=== PATIENT | female | born 1955 | race Caucasian/White ===

== ENCOUNTER → 2024-12-04 | Outpatient (CLI) | payer MEDICARE, BC, SELFPAY ==
--- NOTE | 2024-12-04 11:45 | XR_ITS ---
Examination: Screening digital mammography, bilateral Computer aided detection 3-D breast Tomosynthesis, bilateral Date and time of exam: December 04, 2024 1129 hours Compared to mammograms dating to December 18, 2018 Indication: Screening Technique: Nonmagnified MLO, CC views of the breasts to been obtained, reconstructed from 3-D Tomosynthesis images. R2 computer aided detection program utilized for evaluation of suspicious masses and/or abnormal calcifications. 3-D Tomosynthesis images obtained. Findings: Scattered areas of fibroglandular density Stable nodule outer right breast posterior depth, likely intramammary lymph node Stable focal asymmetry upper left breast MLO view No interval suspicious masses Impression: BI-RADS category II: Benign Findings. Recommend 1 year follow-up mammogram.
== END | disposition home or self-care (01) ==
LOC: CDIM 11:18
PROVIDERS: Referring Provider Nurse Practitioner Family; Visit Provider Nurse Practitioner Family
DX: Z12.31 Encounter for screening mammogram for malignant neoplasm of breast (principal); R92.323 Mammographic fibroglandular density, bilateral breasts
CPT/HCPCS: 77063; 77067

== ENCOUNTER 2024-12-18 10:12 | Outpatient (RCR) | payer MEDICARE, SELFPAY ==
--- NOTE | 2024-12-19 08:44 | PT.OIERPT ---
PT OP Initial Eval Patient Information Outpatient Physical Therapy Treatment Date: 12/18/24 Visit Reasons: Pain in RT shoulder Medical Diagnosis: M25.511 Treatment Dx #1: Right Shoulder Pain Start of Care: 12/19/24 Date of Onset: 6 months ago Smoking Status Smoking Status: Never smoker Initial Assessment Subjective: Pt is a 69 y/o female reports of right shoulder pain (510) ~ 6 months ago while cutting her tree branch with a jeannette. Pt's xray showed moderate OA and is pending MRI in Dec. Pt has limitation overhead motions, lifting, chores, self care, yardwork, and performing recreational activities. Objective: Right Shoulder AROM: all motions are WFL with end range pain in all plane Right Shoulder MMTs: grossly 3+/5 Right Scapula MMTs: grossly 3/5 Special Test (+) [id number]-yuan Palpation: TTP supraspinatus tendon Assessment: Pt demonstrate right shoulder pain leading to difficulty with ADLs. Pt will attempt physical therapy if pain persist Pt will be refer back to provider for further consultation Short Term and Half-Way Goals 1) Increase right shoulder AROM WNL in 6 wks to be able to perform overhead motions 2) Increase right shoulder MMTs grossly to 4-/5 in 6 wks to be able to perform lifting activities 3) Increase right scapula MMTs grossly to 3+/5 in 6 wks to be able to perform recreational activities 4) Indep with HEP Treatment Plan 1) Manual Therapy 2) Therapeutic Activities 3) Therapeutic Exercises 4) Modalities (ice, heat) Frequency and Duration: 2 x wk for 6 wks Certification Dates: 12/18/24 to 03/18/25 Procedure Charges OP PT Eval Mod Complex 30 minutes: Yes
== END 2024-12-28 23:59 | disposition home or self-care (01) ==
LOC: CPTX 10:12
PROVIDERS: PCP Nurse Practitioner Family; Referring Provider Nurse Practitioner Family; Visit Provider Nurse Practitioner Family
DX: M25.511 Pain in right shoulder (principal); M19.011 Primary osteoarthritis, right shoulder
CPT/HCPCS: 97162

== ENCOUNTER 2025-08-06 19:14 | Emergency (ER) | payer MEDICARE, BC, SELFPAY ==
--- NOTE | 2025-08-06 19:25 | XR_ITS ---
Examination: Wrist, left 3 views Technique: Wrist AP, oblique, lateral 3 views Date and time of exam: August 06, 2025, 1942 hrs. Indications: Patient fell today with injury to the wrist, wrist pain. Findings: Absent navicular Sclerotic area in the distal radius Severe osteopenia Advanced osteoarthritis first carpometacarpal joint No acute torus fracture Impression: No acute wrist fracture
--- NOTE | 2025-08-06 19:25 | XR_ITS ---
Examination: Right elbow 3 views Technique: Elbow AP, oblique, lateral 3 views Exam date and time: August 06, 2025, 1942 hrs. Indications: Patient fell today with injury to the elbow, elbow pain. Findings: Acute comminuted fractures radial head with 1.5 mm depression of a portion of the radial head Large elbow effusion Impression: Acute comminuted fractures radial head.
[2025-08-06 20:08] VITALS: BP 172/95; PULSE 76; RESP 16; TEMP 37; O2SAT 97; BMI 24.6
[2025-08-06] MEDS: HYDROcodone/APAP 5/325 TABLET 1 TAB PO (20:41)
--- NOTE | 2025-08-07 01:27 | EDNOTE_ITS ---
Upper Extremity Injury RME/HPI General Chief Complaint: Fall Stated Complaint: FELL, LEFT ARM INJURY Time Seen by Provider: 08/06/25 20:20 Arrival date/time: 08/06/25 19:14 70F with history of HTN presents to ED with L elbow and wrist pain after trip and fall today. Patient denies other injuries. Patient has had fxs and surgeries on L wrist prior to this happening. Limitations: no limitations Related Data Home Medications ?Medication ?Instructions ?Recorded ?Confirmed lisinopril 10 mg tablet 10 mg PO QDAY 01/10/2301/10 Allergies Allergy/AdvReac Type Severity Reaction Status Date / Time No Known Allergies Allergy Verified 08/06/25 19:15 Review of Systems Review of Systems Systems Reviewed: All systems reviewed, normal except as documented Musculoskeletal Musculoskeletal: Reports as per HPI and Reports arthralgias Past Medical History Past Medical History NEUROLOGIC: Negative Neurological Disorders or Seizures CARDIAC: Positive Cardiac Disorders and Hypertension; Negative Congestive Heart Failure RESPIRATORY: Negative Chronic Obstructive Pulmonary Disease (COPD) GASTROINTESTINAL: Positive Gastrointestinal Disorders (Positive stool occult) GENITOURINARY: Negative Genitourinary Disorders or Renal Disease MUSCULOSKELETAL: Positive Musculoskeletal Disorders and Arthritis ENDOCRINE: Negative Endocrine Disorders, Diabetes Mellitus Type 1 or Diabetes Mellitus Type 2 HEMATOLOGIC: Negative Blood Disorders, Anemia or Clotting Problems PSYCHO/SOCIAL: Positive Anxiety OTHER HISTORY: Negative Hospitalization, Autoimmune Disease, Falls, Blood Transfusions, Anesthesia Reactions, MRSA or Cancer Social History SMOKING STATUS: Never smoker ED Exam General Limitations: Present no limitations General appearance: Present alert and in no apparent distress Head Head exam: Present atraumatic Neck Neck exam: Present normal inspection, full ROM and trachea midline Chest Chest inspection: Present normal inspection and symmetric chest wall rise Expanded Upper Extremity Exam Elbow exam: Present tenderness (L) and swelling Psychiatric Psychiatric exam: Present normal affect and normal mood Course Quality Measures none Orders Category Date Time Status Splint / Immobilizer STAT Care 08/06/25 20:33 Completed XR elbow comp LT min 3V Stat Exams 08/06/25 19:25 Completed XR wrist comp LT min 3V Stat Exams 08/06/25 19:25 Completed HYDROcodone*/APAP 5/325 [Pelion 5/325] Med 08/06/25 20:33 Discontinued 1 tab PO X1 ONE Vital Signs Vital signs: Vital Signs Temperature 98.6 F 08/06/25 20:08 Pulse Rate 76 08/06/25 20:08 Respiratory Rate 16 08/06/25 20:08 Blood Pressure 172/95 H 08/06/25 20:08 Pulse Oximetry (%) 97 08/06/25 20:08 Oxygen Delivery Method Room Air 08/06/25 20:08 O2 at 97% on RA and WNLs Extremity Injury MDM Narrative MDM Narrative:: 70F with history of HTN presents to ED with L elbow and wrist pain after trip and fall today. Patient denies other injuries. Patient has had fxs and surgeries on L wrist prior to this happening. Physical exam reveals L elbow tenderness and reduced ROM. Fingers ROM intact. Patient is afebrile, calm, and alert. XR reveals L radial head fx. Given meds, splint, and counseling services manager. Patient data External records reviewed:: [facility] previous records Clinical information provided by:: patient Social determinants that could affect healthcare access:: none Patient has the following chronic illnesses:: HTN How is presenting disease/condition affected by chronic disease/condition?: uneffected by Evaluation data The following diagnostics were reviewed and interpreted by me:: radiology exam(s) Lab and/or radiology exams considered but not ordered:: ordered Interpretation Summary: above Medications / Prescriptions Medications or Prescriptions considered but not ordered:: ordered Medication administrations:: Medication Administration History Discontinued Medications Hydrocodone Bitart/Acetaminophen (Hydrocodone/Apap 5/325 Tablet) 1 tab PO X1 ONE Stop: 08/06/25 20:34 Last Admin: 08/06/25 20:41 Dose: 1 tab Documented By: OA above Consultations Consultation(s) initiated? (list below): No Diagnosis Upper Extremity Injury Differential Diagnosis: sprain and strain of wrist, fracture of wrist, finger sprain, dislocation of finger, Colles' fracture, fracture of hand and other (elbow fx) Most likely diagnosis given after review of the tests above:: elbow fx Admission Indicated Admission indicated?: not indicated Admission Request Was there a request for admission?: No Disposition Plan Disposition Plan: Discharge Discharge Attestation Discharge Attestation: The patient and all family members were given an opportunity to ask questions and understood the discharge instructions. Discharge instructions specifically effects, indications for sooner follow up or return to the emergency department, and the expected course of current diagnosis. Patient condition: Stable Discharge Plan Plan Patient Disposition: HOME (Self Care) Discharge Disposition comment: Stable Prescriptions/Referrals Prescriptions/Med Rec: No Action lisinopril 10 mg tablet 10 mg PO QDAY Patient Comments: TAKE 1 TABLET BY MOUTH EVERY DAY Referrals: Ranjan Pemberton([facility])MD [Primary Care Provider, Family Practice] - In 1 week Problem List Clinical Impression: Elbow fracture Patient/Caregiver Discharge Instructions Education Materials: ED Elbow Fracture Additional Instructions: Please follow-up with PCP within 24-48 hours and return immediately if symptoms worsen. Bring disk to ortho doc to see if you need surgery vs casting. Print Language: Palestinian Stand Alone Forms: Patient Portal Info Letter PA/LIBRARY INFORMATION TECHNICIAN Supervising Physician PA/LIBRARY INFORMATION TECHNICIAN Supervising Physician: Dr. Pedro
== END 2025-08-06 20:43 | disposition home or self-care (01) ==
PROVIDERS: Emergency Provider Emergency Medicine; PCP Family Medicine
DX: S52.122A Displaced fracture of head of left radius, initial encounter for closed fracture (principal); I10 Essential (primary) hypertension; W01.0XXA Fall on same level from slipping, tripping and stumbling without subsequent striking against object, initial encounter
CPT/HCPCS: 29105; 73080; 73110; 99284; A9270